=== PATIENT | male | born 1980 | race Caucasian/White ===

== ENCOUNTER 2021-04-27 13:35 | Emergency (ER) | payer OTHER, SELFPAY ==
--- NOTE | ~2021-04-27 | XR_ITS ---
EXAMINATION: XR shoulder LT min 2V DATE: 04/27/2021 13:55 INDICATION: Left shoulder pain. TECHNIQUE: 5 views of left shoulder were obtained. COMPARISON: None. FINDINGS: Bone alignment is normal. No fracture. Glenohumeral joint is normal. There is mild acromioc lavicular joint osteoarthritis. IMPRESSION: 1. Mild left acromioclavicular joint osteoarthritis. Reviewed, dictated and finalized at location A.
[2021-04-27 13:40] VITALS: BP 129/92; PULSE 110; RESP 16; TEMP 36.7; O2SAT 98
--- NOTE | 2021-04-27 14:18 | ED.UPPEXIN ---
HPI - Extremity Injury (Upper) General Chief Complaint: Back Pain/Injury Stated Complaint: L SHOULDER PAIN Time Seen by Provider: 04/27/21 14:04 Source: patient and RN notes reviewed Mode of arrival: ambulatory Limitations: no limitations History of Present Illness HPI narrative: Patient presents today complaining of left posterior shoulder pain since yesterday. Denies any injury or fall. Denies any heavy lifting. States he woke up yesterday with some mild pain and it has progressively worsened. He does have some intermittent tingling in the left elbow and wrist, but denies numbness. Denies chest pain, shortness of breath, abdominal pain. He has tried a massage pillow at home without relief. Pain increases with movement. Currently rates his pain 5/10 and has tried no medication for symptoms prior to arrival. MD complaint: injury to: left and shoulder Related Data Home Medications Medication Instructions Recorded Confirmed blood sugar diagnostic, disc #30 each 12/13/19 04/27/21 blood-glucose meter, disc-type #1 12/13/19 04/27/21 omega-3 fatty acids 1,000 mg 1,000 mg PO DAILY 12/13/19 04/27/21 capsule Allergies Allergy/AdvReac Type Severity Reaction Status Date / Time No Known Allergies Allergy Unverified 04/27/21 13:40 Review of Systems Review of Systems: Narrative: CONSTITUTIONAL: Denies body aches, fever, chills, or sweats. EYES: Denies visual changes, redness, or discharge. ENT: Denies rhinorrhea, congestion, sore throat, or otalgia. CARDIOVASCULAR: Denies chest pain, palpitations, or edema. RESPIRATORY: Denies cough or dyspnea. GASTROINTESTINAL: Denies abdominal pain, nausea, vomiting, or diarrhea. GENITOURINARY: Denies dysuria or hematuria. SKIN: Denies rash, itching, or wounds. MUSCULOSKELETAL: Denies back pain,or myalgia. + Left shoulder pain NEUROLOGIC: Denies headache, numbness, tingling, or weakness. PSYCH: Denies depression or anxiety. [facility], [facility] Family History Family History Father Hypertension Malignant neoplasm of prostate Mother Hypertension Family history of osteoarthritis Sibling Family history of lupus erythematosus Other Diabetes mellitus Family history of alcoholism Family history of arthritis Family history of malignant neoplasm Family history of mental disorder Social History Social History Social History: Smoking status: Never smoker Second hand tobacco smoke exposure: No Alcohol intake: never Substance use: never Substance use type: does not use Gender identity (if verbalized by the patient): Male Comments At time of signature, I have reviewed and agree with nursing past medical, surgical, social and family history unless otherwise noted. Please see nursing chart for further information. There is no relevant family history pertinent to the presenting complaint Exam Narrative: Exam Narrative: GENERAL: Well-appearing, well-nourished, and in no acute distress. HEAD: Normocephalic, atraumatic. EYES: EOMI. No redness or drainage. Conjunctivae normal. ENT: Mucous membranes pink and moist. NECK: Normal AROM with increased pain with extension of the neck as well as with leftward gaze and left ear to the left shoulder. Tenderness to the left cervical paraspinal muscles extending to the superior portion of the left trapezius, down the scapular border medially. Supple. No lymphadenopathy. CHEST: No respiratory distress. MUSCULOSKELETAL: No bony tenderness. EXTREMITIES: Tenderness along the scapular border medially. Patient has full range of motion of the left shoulder with no bony tenderness of the shoulder or tenderness of the shoulder joint itself. Pain along scapular border with internal rotation of the shoulder. SKIN: Warm, dry, no rash. Capillary refill normal. Normal skin turgor. NEURO: No focal deficits. Alert and or
== END 2021-04-27 14:35 | disposition home or self-care (01) ==
PROVIDERS: Emergency Provider Nurse Practitioner; PCP Family Medicine
DX: S46.912A Strain of unspecified muscle, fascia and tendon at shoulder and upper arm level, left arm, initial encounter (principal); X58.XXXA Exposure to other specified factors, initial encounter; E78.00 Pure hypercholesterolemia, unspecified; I10 Essential (primary) hypertension; E11.9 Type 2 diabetes mellitus without complications
CPT/HCPCS: 73030; 99213; G0463

== ENCOUNTER → 2022-04-20 08:15 | Outpatient (CLI) | payer OTHER, SELFPAY ==
--- NOTE | ~2022-04-20 | XR_ITS ---
EXAMINATION: XR knee LT min 4V DATE: 04/20/2022 08:33 INDICATION: Left knee pain TECHNIQUE: Weight bearing anteroposterior and Gupta, sunrise, and flexed lateral views of the lef t knee were obtained COMPARISON: None. FINDINGS: Alignment is normal. No fracture. Joint spaces are normal. Tiny marginal osteophytes along the odom la consistent with minimal osteoarthritis. No joint effusion/layering lipohemarthrosis. Soft tissues are unremarkable. IMPRESSION: 1. Minimal patellofemoral osteoarthritis with tiny patellar marginal osteophytes but relatively prese rved joint spaces. Reviewed, dictated and finalized at location B. IMPRESSION: 1. Minimal patellofemoral osteoarthritis with tiny patellar marginal osteophyte s but relatively preserved joint spaces.
== END ==
PROVIDERS: PCP Family Medicine; Visit Provider Physician Assistant
DX: M17.12 Unilateral primary osteoarthritis, left knee (principal)
CPT/HCPCS: 73564

== ENCOUNTER 2022-07-07 12:30 | Outpatient (RCR) | payer OTHER, SELFPAY ==
--- NOTE | 2022-06-07 14:01 | PTOPEVAL ---
PHYSICAL THERAPY INITIAL EVALUATION. Thank you for referring Kenneth Johnson to [facility].? The patient is scheduled to be seen for therapy? 2x/week for 4 weeks. Please review, sign, date and return this plan of care NINFA. I agree with and certify that the following plan of care is medically necessary. Referring Physician Date Attending Provider: Fina Kelly PA-C *PT Outpatient Evaluation Start: 06/07/22 Evaluation Information Diagnosis L knee pain Onset ~3 months Subjective Information Pt states he has a long Query Text:As Reported By Patient/ history of knee pain with a Family diagnosis of monochromasia as a child. He states a few months ago he started to feel a different knee pain that was sharp. He feels is more with terminal knee extension versus weight bearing activities. He has also states his pain is speed dependent. When walking for exercise (at a faster pace) he has more knee pain than when going on a casual walk with his family. He has been trying to increased his activity to improve his health but pain has been a limiting factor with this. Pain Assessment Left Knee(s) Reported Pain Level 3 Pain Description Aching,Dull,Sharp Lowest Pain Intensity 1 Greatest Pain Intensity 7 Lower Extremity Range of Motion General Lower Extremity Range of Motion WFL/Left,WFL/Right Gross Lower Extremity Range of Motion rupinder knee flexion ~135 deg Comments rupinder knee extension ~0 deg Lower Extremity Muscle Strength Testing General Lower Extremity Strength WFL/Left,WFL/Right Gross Lower Extremity Strength rupinder LE grossly 4+ to 5/5 unable to control descent during LLE eccentric lowering off front of step Palpation Assessment Palpation medial knee joint line Special Tests-Lower Extremity Knee Special Tests Anterior Drawer Negative Left,Negative Right Posterior Drawer Negative Left,Negative Right Valgus Stress Test Knee at 0 Degrees Negative Left,Negative Right Valgus Stress Test Knee at 30 Degrees Negative Left,Negative Right Varus Stress Test Knee at 0 Degrees Negative Left,Negative Right Varus Stress Test Knee at 30 Degrees Negative Left,Negative Right Shawn Test Negative Right,Positive Left Gait Assessment
--- NOTE | 2022-07-07 13:15 | PTOPEVAL ---
PHYSICAL THERAPY PROGRESS REPORT AND DISCHARGE SUMMARY. Thank you for referring Kenneth Johnson to [facility].? The patient is to be discharged from skilled therapy services at this time. Please review, sign, date and return this plan of care NINFA. I agree with and certify that the following plan of care is medically necessary. Referring Physician Date Attending Provider: Fina Kelly PA-C *PT Outpatient Evaluation Start: 06/07/22 Evaluation Information Diagnosis L knee pain Onset ~3 months Subjective Information Pt states he thinks his knee Query Text:As Reported By Patient/ is doing great. He states he Family was standing in one place for 6 hours Tuesday and Tuesday and walked for 4 hours each day after that. He states only his feet were bothering him after this but the knees felt great. Pt reports achy pain after lots of walking, this is a different pain than his initial complaint. He states he has gotten back to walking his neighborhood without an increase in knee pain. Pt states therapy has been more helpful than he anticipated. Pain Assessment Self Report Pain Assessment Left Knee(s) Reported Pain Level 0 Pain Description Aching Greatest Pain Intensity 3 Lower Extremity Range of Motion General Lower Extremity Range of Motion WFL/Left,WFL/Right Gross Lower Extremity Range of Motion rupinder knee flexion ~135 deg Comments rupinder knee extension ~0 deg Lower Extremity Muscle Strength Testing General Lower Extremity Strength WFL/Left,WFL/Right Gross Lower Extremity Strength rupinder LE grossly 4+ to 5/5 unable to control descent during LLE eccentric lowering off front of step Palpation Assessment Palpation no tenderness reported Gait Assessment Gait Pattern No Deviations/Normal Other Gait Observations mild BLE ext rot Stair Climbing Assessment Stair Climbing Assessment Stair Climbing Assistive Devices None,Railings Number of Steps Climbed (Steps) 4 Number of Repetitions (Repetitions) 4 Technique Alternating Steps Cues Needed For Stair Climbing Verbal Stair Climbing Comments no deviations Safety Assessment Factors Affecting Safety No Concerns General Exercise Exercise Description - reviewed and consolidated Query Text:Record Sets, Reps, HEP, education on continuing Resistance, and Position*
== END 2022-07-28 15:47 | disposition home or self-care (01) ==
LOC: ANHGOSHPT 12:30
PROVIDERS: PCP Family Medicine; Visit Provider Physician Assistant
DX: M25.562 Pain in left knee (principal)
CPT/HCPCS: 97110; 97112; 97140; 97161; 97530

== ENCOUNTER 2022-12-28 16:32 | Emergency (ER) | payer OTHER, SELFPAY ==
[2022-12-28 16:41] VITALS: BP 130/89; PULSE 118; RESP 16; TEMP 36.6; O2SAT 97
--- NOTE | 2022-12-28 16:41 | ED.EAR ---
HPI - Ear Problem General Chief complaint: Ear Stated complaint: lt ear wax buildup Source: patient and RN notes reviewed History of Present Illness HPI Narrative: 42 yo M presents to urgent care with complaints of cerumen impaction. Pt states both of his ears feel full and he was seen at his PCP's office yesterday where it was confirmed that he had wax buildup. Pt states he has been using Debrox in both ears without relief. Denies any significant pain in the ear, fevers, or chills. Some parts of this dictation were generated by voice recognition software and may contain typographical and/or grammatical inaccuracies. Related Data Home Medications Medication Instructions Recorded Confirmed blood sugar diagnostic, disc #30 ea 12/13/19 12/27/22 (Breeze 2 Test Strips) blood-glucose meter, disc-type ##1 12/13/19 12/27/22 omega-3 fatty acids 1,000 mg 1,000 mg PO DAILY 12/13/19 12/27/22 capsule (Fish Oil Concentrate) Allergies Allergy/AdvReac Type Severity Reaction Status Date / Time No Known Allergies Allergy Unverified 12/27/22 10:30 Review of Systems Review of Systems: CONSTITUTIONAL: Denies fever, chills, or sweats. EYES: Denies visual changes, redness, or discharge. ENT: Reports ear fullness and difficulty hearing out of left. CARDIOVASCULAR: Denies chest pain, palpitations, or edema. RESPIRATORY: Denies cough or dyspnea. GASTROINTESTINAL: Denies abdominal pain, nausea, vomiting, or diarrhea. GENITOURINARY: Denies dysuria or hematuria. SKIN: Denies rash or itching. MUSCULOSKELETAL: Denies back pain, joint pain, or myalgia. NEUROLOGIC: Denies headache, numbness, or weakness. [facility] Family History Family History Father Hypertension Malignant neoplasm of prostate Mother Hypertension Family history of osteoarthritis Sibling Family history of lupus erythematosus Other Diabetes mellitus Family history of alcoholism Family history of arthritis Family history of malignant neoplasm Family history of mental disorder Social History Social History Social History: Smoking status: Never smoker Second hand tobacco smoke exposure: No Alcohol intake: never Substance use: never Substance use type: does not use Living arrangements: with family Occupation/Education: occupation Gender identity (if verbalized by the patient): Male Sexual Orientation (if Verbalized by the Patient): Straight or Heterosexual Comments At the time of my signature, I reviewed and agree with the nursing past medical, surgical, social, and family history. There is no relevant family history pertinent to the patient complaint. Exam Narrative: GENERAL: This is a well-nourished, well-developed patient, in no apparent distress. HEAD: normocephalic, atraumatic. EYES: PERRL. Sclera clear/white. Vision is grossly intact. EARS: External ears normal. Post irrigation, left TM was noted to be intact and hearing improved; canal was erythremic. Right TM was partially visualized and irrigation was unsuccessful on the right side. The right TM was intact and bulging from what could be assessed. Small amount of hardened wax was noted up against the TM. NOSE: External nose normal with no obvious nasal discharge, nares without redness, no rhinorrhea. THROAT: Mucous membranes moist, posterior pharynx clear. NECK: Neck supple, non-tender without lymphadenopathy, masses or thyromegaly. SKIN: warm, intact with no suspicious lesions or rash, good texture and turgor. NEURO: awake, alert, and oriented to person, place and time. There were no obvious focal neurologic abnormalities. Course Course Level of Care: Express Care Visit Vital Signs Vital signs: Vital Signs Temperature 98 F 12/28/22 16:41 Pulse Rate 118 H 12/28/22 16:41 Respiratory Rate 16 12/28/22 16:41 Blood Pressure 130/89 01
[2022-12-28 16:44] VITALS: BP 130/89; PULSE 118; RESP 16; TEMP 36.6; O2SAT 97
== END 2022-12-28 16:59 | disposition home or self-care (01) ==
PROVIDERS: Emergency Provider Nurse Practitioner Family; PCP Family Medicine
DX: H61.23 Impacted cerumen, bilateral (principal)
CPT/HCPCS: 69210; 99212; G0463

== ENCOUNTER 2023-01-01 08:03 | Emergency (ER) | payer OTHER, SELFPAY ==
[2023-01-01 08:12] VITALS: BP 123/83; PULSE 100; RESP 16; TEMP 36.6; O2SAT 96
--- NOTE | 2023-01-01 08:16 | ED.EAR ---
HPI - Ear Problem General Chief complaint: Ear Stated complaint: lt ear pain/drainage Time Seen by Provider: 01/01/23 08:16 Source: patient, RN notes reviewed and old records reviewed Mode of arrival: ambulatory Limitations: no limitations History of Present Illness HPI Narrative: 42-year-old male who presents to [facility] with complaints of pain to his left ear since Tuesday initially. He was seen previously in clinic with copious amounts of ear wax removed from his left ear previously this week. Patient reports that he continues to have pain to his left ear. He states that he has felt some chills and has had slight fevers. Patient reports that he also has had sore throat with known exposure to strep from his son. MD Complaint: ear pain Location: left ear Duration: constant Treatment prior to arrival: none Related Data Home Medications Medication Instructions Recorded Confirmed blood sugar diagnostic, disc #30 ea 12/13/19 12/27/22 (Breeze 2 Test Strips) blood-glucose meter, disc-type ##1 12/13/19 12/27/22 omega-3 fatty acids 1,000 mg 1,000 mg PO DAILY 12/13/19 01/01/23 capsule (Fish Oil Concentrate) Allergies Allergy/AdvReac Type Severity Reaction Status Date / Time No Known Allergies Allergy Unverified 01/01/23 08:15 Review of Systems Review of Systems: CONSTITUTIONAL: Reports malaise, chills, sweats, or fever. EYES: Denies visual changes, redness, or discharge. ENT: Reports rhinorrhea, congestion, sinus pain, left otalgia positive for sore throat. CARDIOVASCULAR: Denies chest pain, palpitations, or edema. RESPIRATORY: Reports cough.? Denies dyspnea. GASTROINTESTINAL: Denies abdominal pain, nausea, vomiting, diarrhea SKIN: Denies rash or itching. MUSCULOSKELETAL: Denies myalgia. NEUROLOGIC: Denies headache. All systems reviewed & are unremarkable except as noted in HPI and below PMFSH Family History Family History Father Hypertension Malignant neoplasm of prostate Mother Hypertension Family history of osteoarthritis Sibling Family history of lupus erythematosus Other Diabetes mellitus Family history of alcoholism Family history of arthritis Family history of malignant neoplasm Family history of mental disorder Social History Social History Social History: Smoking status: Never smoker Second hand tobacco smoke exposure: No Alcohol intake: never Substance use: never Substance use type: does not use Living arrangements: with family Occupation/Education: occupation Gender identity (if verbalized by the patient): Male Sexual Orientation (if Verbalized by the Patient): Straight or Heterosexual Comments At time of signature, agree with nursing past medical, surgical, social and family history. There is no relevant family history pertinent to the presenting complaint Exam Narrative: GENERAL: Well-appearing, well-nourished, and in no acute distress. HEAD: Normocephalic EYES: PERRLA, conjunctivae clear ENT: Nares clear, turbinates edematous and erythematous, clear discharge. Mucous membranes moist. TM pearly romero with dull light reflex bilaterally; no tragal tenderness. Oropharynx erythematous without lesions. Tonsils enlarged and without exudate, no drooling, no hoarseness, no trismus, uvula midline.sore throat NECK: Supple. No lymphadenopathy CHEST: Clear to auscultation, breath sounds equal. No wheezing, rhonchi, rales, or stridor. No respiratory distress, speaks in full sentences. HEART: Regular rate and rhythm. No murmur heard. SKIN: Warm, dry, no rash. NEURO: Alert and oriented x3. PSYCH: Normal mood and affect Course Course Emergency Course: Patient is aware of diagnosis, understands and agrees to treatment plan.? Anticipatory guidance given.? Patient agrees to follow-up as directed and is aware of reasons to
== END 2023-01-01 08:36 | disposition home or self-care (01) ==
PROVIDERS: Emergency Provider Registered Nurse; PCP Family Medicine
DX: H66.92 Otitis media, unspecified, left ear (principal); J02.9 Acute pharyngitis, unspecified
CPT/HCPCS: 99213; G0463

== ENCOUNTER 2023-09-06 08:04 | Outpatient (CLI) | payer BC, SELFPAY ==
[2023-09-06 09:09] LABS: Influenza A QL RT-PCR Negative (Negative); Influenza B QL RT-PCR Negative (Negative); SARS-CoV-2 RNA PCR Positive (Negative)
== END 2023-09-06 08:05 | disposition home or self-care (01) ==
PROVIDERS: PCP Family Medicine; Visit Provider Physician Assistant
DX: U07.1 COVID-19 (principal)
CPT/HCPCS: 87636

== ENCOUNTER 2024-03-27 00:04 | Day surgery (SDC) | payer BC, SELFPAY ==
[2024-03-12 15:04] VITALS: BMI 36.5
[2024-03-27 06:34] VITALS: BP 142/93; PULSE 102; RESP 19; TEMP 36.1; O2SAT 97
[2024-03-27] MEDS: LACTATED RINGERS 1,000 ML 150 ML IV CONT (06:45)
[2024-03-27 06:58] LABS: Glucose Point of Care 171 mg/dl (65-105)
--- NOTE | 2024-03-27 07:17 | PM.HPGS ---
History of Present Illness History of Present Illness Consent: Risks, benefits, and alternatives have been discussed and questions answered. Patient agrees to proceed with procedure. Chief complaint: neoplasm screening Narrative: Kenneth Johnson is a 43 year old male here for first screening colonoscopy Review of Systems Review of Systems: All systems reviewed & are unremarkable except as noted in HPI and below PMFSH Past Medical History Medical History (Updated 03/27/24 @ 07:18 by Uday Kern MD) Colon cancer screening Family History Family History Father Hypertension Malignant neoplasm of prostate Mother Hypertension Family history of osteoarthritis Sibling Family history of lupus erythematosus Other Diabetes mellitus Family history of alcoholism Family history of arthritis Family history of malignant neoplasm Family history of mental disorder Social History Social History Social History: Caffeine-some Smoking status: Never smoker Second hand tobacco smoke exposure: No Alcohol intake: current Substance use: never Substance use type: does not use Lack of Transportation: No Lack of Food: Never True Current Housing: I Have Housing Concerned About Future Housing: No Difficulty Paying Gas/Electric Bills: No Difficulty Paying for Meds: No Currently Unemployed: No Education: Bachelor's Degree Difficulty w/ Childcare or Family Care: No Living arrangements: with family Occupation/Education: occupation Gender identity (if verbalized by the patient): Male Sexual Orientation (if Verbalized by the Patient): Straight or Heterosexual Spiritual care concerns: No Meds Home Medications and Allergies Home Medications Medication Instructions Recorded Confirmed Type blood sugar diagnostic, disc #30 ea 12/13/19 01/10/24 History (Breeze 2 Test Strips) blood-glucose meter, disc-type ##1 12/13/19 01/10/24 History omeprazole 20 mg capsule,delayed 20 mg PO DAILY #1 cap 08/26/22 03/12/24 Rx release rosuvastatin 20 mg tablet 20 mg PO DAILY #90 tabs 07/15/23 03/12/24 Rx dapagliflozin propanediol 10 mg 10 mg PO QAM #90 tabs 07/25/23 03/12/24 Rx tablet (Farxiga) sitagliptin phosphate 100 mg See Rx Instructions .Route 01/25/24 04/15/24 Rx tablet (Januvia) .COMPLEX #90 tabs lisinopril 10 See Rx Instructions .Route 01/06/24 03/12/24 Rx mg-hydrochlorothiazide 12.5 mg .COMPLEX #90 tabs tablet metformin 500 mg tablet,extended 500 mg PO .COMPLEX #120 tabs 02/06/24 03/12/24 Rx release 24 hr Napjjoxyzrr-Lprqzwkxfjy-JVA 2 tab-cap PO DAILY 03/12/24 03/12/24 History multivitamin with minerals 1 tablet PO DAILY 03/12/24 03/12/24 History omega-3 fatty acids 2,000 mg PO DAILY 03/12/24 03/12/24 History Allergies Allergy/AdvReac Type Severity Reaction Status Date / Time No Known Allergies Allergy Verified 03/27/24 06:32 Vital Signs Vital Signs - 24 hr 03/27/24 06:34 Temperature 97 F L Pulse Rate 102 H Respiratory Rate 19 Blood Pressure 142/93 H Pulse Oximetry 97 Oxygen Delivery Room Air Exam Const: General: comfortable and no acute distress HENMT: Face/Nose/Sinus: Normal nares present Eyes: General: appearance normal, both eyes and all related structures Neck: Neck: no JVD Resp: Auscultation: clear to auscultation bilaterally Cardio: Rate: regular rate Rhythm: regular rhythm GI: Inspection: non-distended GI Palp: Yes Soft to palpation Skin: General skin exam: normal color Neuro: General: gait normal Speech: normal speech Extrem: General: normal to inspection Psych: Mental Status: mental status grossly normal Assessment and Plan Assessment and plan (1) Colon cancer screening: Code(s): Z12.11 - Encounter for screening for malignant neoplasm of colon Status: Acute
--- NOTE | 2024-03-27 07:19 | WPDANESEPPF ---
Anes - Initial Pre Proc Eval Procedure: Operation Date: 03/27/24 08:30 Proposed Procedures p Screening Colonoscopy - Uday Kern MD Date/Time: 03/27/24 07:19 Surgeon: Uday Kern MD Pre Op Diagnosis: neoplasm screening Patient Data Age: 43 Gender: M Height: 1.73 m Weight: 106.6 kg Last Vital Signs Temp 97 F L 03/27/24 06:34 Pulse 102 H 03/27/24 06:34 Resp 19 03/27/24 06:34 BP 142/93 H 03/27/24 06:34 Pulse Ox 97 03/27/24 06:34 O2 Del Method Room Air 03/27/24 06:34 Allergies Allergy/AdvReac Type Severity Reaction Status Date / Time No Known Allergies Allergy Verified 03/27/24 06:32 Home Medications Medication Instructions Recorded Confirmed Type blood sugar diagnostic, disc #30 ea 12/13/19 01/10/24 History (Breeze 2 Test Strips) blood-glucose meter, disc-type ##1 12/13/19 01/10/24 History omeprazole 20 mg capsule,delayed 20 mg PO DAILY #1 cap 08/26/22 03/12/24 Rx release rosuvastatin 20 mg tablet 20 mg PO DAILY #90 tabs 07/15/23 03/12/24 Rx dapagliflozin propanediol 10 mg 10 mg PO QAM #90 tabs 07/25/23 03/12/24 Rx tablet (Farxiga) sitagliptin phosphate 100 mg See Rx Instructions .Route 12/22/23 03/12/24 Rx tablet (Januvia) .COMPLEX #90 tabs lisinopril 10 See Rx Instructions .Route 01/06/24 03/12/24 Rx mg-hydrochlorothiazide 12.5 mg .COMPLEX #90 tabs tablet metformin 500 mg tablet,extended 500 mg PO .COMPLEX #120 tabs 02/06/24 03/12/24 Rx release 24 hr Cnyapxnhoaq-Odklfdifpse-JMW 2 tab-cap PO DAILY 03/12/24 03/12/24 History multivitamin with minerals 1 tablet PO DAILY 03/12/24 03/12/24 History omega-3 fatty acids 2,000 mg PO DAILY 03/12/24 03/12/24 History Laboratory Tests 03/27/24 06:55 POC Capillary Glucose 171 H mg/dl (65-105) Patient hx anesthesia problems: none Family hx anesthesia problems: none Results Review: All pre-operative results and documents have been reviewed as part of the pre-operative evaluation. [facility] Past Medical History Medical History (Updated 03/27/24 @ 07:18 by Uday Kern MD) Colon cancer screening Family History Family History Father Hypertension Malignant neoplasm of prostate Mother Hypertension Family history of osteoarthritis Sibling Family history of lupus erythematosus Other Diabetes mellitus Family history of alcoholism Family history of arthritis Family history of malignant neoplasm Family history of mental disorder Social History Social History Social History: Caffeine-some Smoking status: Never smoker Second hand tobacco smoke exposure: No Alcohol intake: current Substance use: never Substance use type: does not use Lack of Transportation: No Lack of Food: Never True Current Housing: I Have Housing Concerned About Future Housing: No Difficulty Paying Gas/Electric Bills: No Difficulty Paying for Meds: No Currently Unemployed: No Education: Bachelor's Degree Difficulty w/ Childcare or Family Care: No Living arrangements: with family Occupation/Education: occupation Gender identity (if verbalized by the patient): Male Sexual Orientation (if Verbalized by the Patient): Straight or Heterosexual Spiritual care concerns: No Anes - Eval Final PreProcedure Day of Procedure 03/27/24 07:19 Patient weight: obese Heart: regular rate and rhythm Lungs: clear to auscultation Airway: Mallampati scale class II Neurological: alert and oriented Last oral intake: >/= 8 hours ASA classification: III Emergent: no Anesthetic plan: proceed Anesthesia type and monitoring: general GIVS and standard monitoring Results Review: All pre-operative results and documents have been reviewed as part of the pre-operative evaluation. Informed Consent: The patient's anesthetic plan and
[2024-03-27 07:46] VITALS: BP 114/72; PULSE 100; RESP 20; O2SAT 97
[2024-03-27 07:56] VITALS: BP 117/75; PULSE 97; RESP 21; O2SAT 98
[2024-03-27 08:06] VITALS: BP 129/91; PULSE 86; RESP 18; O2SAT 98
== END 2024-03-27 08:14 | disposition home or self-care (01) ==
PROVIDERS: PCP Family Medicine; Visit Provider Internal Medicine Gastroenterology
PROC: 0DJD8ZZ Inspection of Lower Intestinal Tract, Via Natural or Artificial Opening Endoscopic (ICD-10-PCS; CPT 45378; principal; 2024-03-27 08:30)
DX: Z12.11 Encounter for screening for malignant neoplasm of colon (principal); K63.5 Polyp of colon; Z79.84 Long term (current) use of oral hypoglycemic drugs; E66.9 Obesity, unspecified; Z68.35 Body mass index [BMI] 35.0-35.9, adult
CPT/HCPCS: 45385; 82948; 88305; J2704; J7120

== ENCOUNTER 2024-04-30 16:58 | Outpatient (CLI) | payer BC, SELFPAY ==
--- NOTE | ~2024-04-30 | XR_ITS ---
EXAMINATION: XR chest 2V Exam Date/Time: 04/30/2024 17:00 CDT HISTORY: R05.9 - Cough, unspecified, DRY COUGH FOR COUPLE WKS Comparison: None. RESULT: Lines, tubes, and devices: None. Lungs and pleura: Clear. Cardiomediastinal silhouette: Unremarkable. Other: No acute osseous or upper abdominal finding. IMPRESSION: No acute cardiopulmonary process. Reviewed, dictated and finalized at location K.
== END 2024-04-30 16:59 | disposition home or self-care (01) ==
LOC: ANHIMG 16:58
PROVIDERS: PCP Family Medicine; Visit Provider Physician Assistant Medical
DX: R09.89 Other specified symptoms and signs involving the circulatory and respiratory systems (principal)
CPT/HCPCS: 71046